=== PATIENT | male | born 1965 | race Caucasian/White ===

== ENCOUNTER 2023-11-23 12:49 | Outpatient (CLI) | payer BC, SELFPAY ==
--- NOTE | 2023-11-23 14:30 | NEURO_ITS ---
Impression: # Complains of numbness of lower extremities. Not diabetic. 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 # Needle/EMG exam with decreased motor unit potentials but no fibs or myotonia. # Clinical correlation recommended. Nerve Conduction Studies Anti Sensory Summary Table Stim Site NR Peak (ms) P-T Amp (?V) Site1 Site2 Delta-P (ms) Dist (cm) Brayan (m/s) Left Sup Fibular Anti Sensory (Ant Lat Mall) 14 cm 3.3 2.3 14 cm Ant Lat Mall 3.3 16.0 48 Right Sup Fibular Anti Sensory (Ant Lat Mall) 14 cm 3.4 7.8 14 cm Ant Lat Mall 3.4 16.0 47 Left Sural Anti Sensory (Lat Mall) NO RESPONSE Calf NR Calf Lat Mall 16.0 Right Sural Anti Sensory (Lat Mall) NO RESPONSE Calf NR Calf Lat Mall 16.0 Motor Summary Table Stim Site NR Onset (ms) O-P Amp (mV) Site1 Site2 Delta-0 (ms) Dist (cm) Brayan (m/s) Left Peroneal Motor ([facility] Med) Ankle 4.2 3.2 Popit Ankle 10.3 45.0 44 Popit 14.5 1.9 Right Peroneal Motor ([facility] Med) Ankle 4.1 0.7 Popit Ankle 12.1 45.0 37 Popit 16.2 0.5 Left Tibial Motor (Abd Belle Brev) Ankle 4.7 0.1 Knee Ankle 10.7 44.0 41 Knee 15.4 0.2 Right Tibial Motor (Abd Belle Brev) Ankle 4.5 0.3 Knee Ankle 13.9 48.0 35 Knee 18.4 0.1 F Wave Studies NR F-Lat (ms) L-R F-Lat (ms) Left Peroneal (Mrkrs) (EDB) 58.70 Right Peroneal (Mrkrs) (EDB) DISPERSED RESPONSE NR Left Tibial (Mrkrs) (Abd Hallucis) DISPERSED RESPONSE NR Right Tibial (Mrkrs) (Abd Hallucis) DISPERSED RESPONSE NR EMG Side Muscle Nerve Root Ins Act Fibs Amp Dur Recrt Comment Right AntTibialis Dp Br Fibular L4-5 Nml Nml Nml Nml +1 Right Gastroc Tibial S1-2 Nml Nml Nml Nml +1 Right Fibularis Long Sup Br Fibular L5-S1 Nml Nml Nml Nml +1 Right Flex Dig Long Tibial L5-S2 Nml Nml Incr >12ms +2 Right Ext Dig Brev Dp Br Fibular L5, S1 Nml Nml Incr >12ms +2 Left AntTibialis Dp Br Fibular L4-5 Nml Nml Nml Nml +1 Left Gastroc Tibial S1-2 Nml Nml Nml Nml +1 Left Fibularis Long Sup Br Fibular L5-S1 Nml Nml Nml Nml +1 Left Flex Dig Long Tibial L5-S2 Nml Nml Incr >12ms +2 Left Ext Dig Brev Dp Br Fibular L5, S1 Nml Nml Incr >12ms +2 MTDD
== END 2023-11-23 12:50 | disposition home or self-care (01) ==
LOC: ANHNEURO 12:50
PROVIDERS: PCP Internal Medicine; Visit Provider Nurse Practitioner Acute Care
DX: M54.10 Radiculopathy, site unspecified (principal)
CPT/HCPCS: 95886; 95910